=== PATIENT | male | born 1995 ===

== ENCOUNTER 2017-04-25 12:50 | Emergency (ER) | payer MEDICAID ==
--- NOTE | 2017-04-25 13:14 | C.PDOC ---
History Of Present Illness 22 y/o male presents to ED for evaluation of pain and swelling to the right side of face which began yesterday. Patient states his symptoms are worse when eating. He denies dental pain, fever, chills, nausea, vomiting. Time Seen by Provider: 04/25/17 13:12 Chief Complaint (Nursing): Dental Pain History Per: Patient History/Exam Limitations: no limitations Onset/Duration Of Symptoms: Hrs Current Symptoms Are (Timing): Still Present Quality: Positive for: "Pain" Additional History Per: Patient Past Medical History Reviewed: Historical Data, Nursing Documentation, Vital Signs Vital Signs: Last Vital Signs Temp 98.6 F 04/25/17 13:08 Pulse 77 04/25/17 13:08 Resp 20 04/25/17 13:08 BP 123/78 04/25/17 13:08 Pulse Ox 99 04/25/17 13:56 - Medical History PMH: No Chronic Diseases Surgical History: No Surg Hx Family History: States: Unknown Family Hx Review Of Systems Constitutional: Negative for: Fever, Chills ENT: Positive for: Other (right-sided facial pain and swelling ) Gastrointestinal: Negative for: Nausea, Vomiting Physical Exam - Physical Exam Appears: Non-toxic, No Acute Distress Skin: Normal Color, Warm, Dry Head: Other (edema over right parotid gland ) Eye(s): bilateral: Normal Inspection Ear(s): Bilateral: Normal Oral Mucosa: Moist Tongue: No Swelling Gingiva: No Erythema, No Swelling, No Abscess, No Other (salivary duct stone or purulent discharge noted ) Neck: Supple Neurological/Psych: Normal Speech, Normal Cognition ED Course And Treatment O2 Sat by Pulse Oximetry: 99 (on RA) Pulse Ox Interpretation: Normal Medical Decision Making Medical Decision Making: Toradol IM administered. Disposition - Disposition Referrals: Vel Saunders MD [Staff Provider] - Clinic,Med Surg [Primary Care Provider] - Disposition: HOME/ ROUTINE Disposition Time: 13:47 Condition: STABLE Additional Instructions: Please follow up with the ENT specialist. Use ibuprofen, warm compresses, and gentle massage for pain relief. Take antibiotics as directed. Return to the ER for any worsening symptoms, fever, difficulty swallowing or for any other concerns. Prescriptions: Clindamycin [Cleocin] 300 mg PO Q8H #21 cap Naproxen [Naprosyn] 500 mg PO Q12H PRN #10 tablet PRN Reason: Pain, Moderate (4-7) Instructions: Sialoadenitis (ED) Forms: General Discharge Instructions, [facility] (I[place]ic), Work Excuse - Clinical Impression Clinical Impression: Sialadenitis - Scribe Statement The provider has reviewed the documentation as recorded by the Scribe (Sarah Gonzalez) Provider Attestation: All medical record entries made by the Scribe were at my direction and personally dictated by me. I have reviewed the chart and agree that the record accurately reflects my personal performance of the history, physical exam, medical decision making, and the department course for this patient. I have also personally directed, reviewed, and agree with the discharge instructions and disposition.
[2017-04-25 14:12] VITALS: BP 121/72; PULSE 75; RESP 17; TEMP 98.1; O2SAT 98
== END 2017-04-25 14:14 | disposition home or self-care (01) ==
LOC: SUPCPDRO 12:50 → C.ER 12:50
DX: K11.20 Sialoadenitis, unspecified (principal)
CPT/HCPCS: 96372; 99283; J1885